=== PATIENT | female | born 1945 | race Caucasian/White ===

== ENCOUNTER 2021-01-03 11:35 | Emergency (ER) | payer MEDICARE, BC ==
[2021-01-03 11:44] VITALS: BP 177/91; PULSE 84
--- NOTE | 2021-01-03 11:58 | EDM.PDOC ---
ED HPI GENERAL MEDICAL PROBLEM - General Chief Complaint: Neuro Symptoms/Deficits Stated Complaint: L SIDE OF BODY NUMB Time Seen by Provider: 01/03/21 11:53 - History of Present Illness INITIAL COMMENTS - FREE TEXT/NARRATIVE: 75-year-old female presents the emergency room with left-sided facial and body numbness and weakness. Patient went to bed about 530 this morning and everything seemed to be okay. She awoke around 10:00 with numbness and weakness and she is unsure if the weakness was related to the numbness or she actually had significant weakness at that time. Also at this time she had some significant dizziness this is resolved. At this point if she looks to the right she gets some double vision. She has noticeable left facial numbness at this time no apparent weakness in her face. She has also had some double vision this is aggravated by turning her head to the right and when they were doing [id number] testing this seemed to aggravate it. Patient denies any chest pain pressure or palpitations. Patient has not had episodes like this in the past. She has a history of diabetes, type II, hyperlipidemia. No prior history of coronary artery disease no prior history of stroke. - Related Data Allergies Allergy/AdvReac Type Severity Reaction Status Date / Time azithromycin Allergy Swelling Verified 01/03/21 11:44 [From Zithromax Z-Samy] dulaglutide [From Trulicity] Allergy Dizziness Verified 01/03/21 11:44 lisinopril Allergy Cough Verified 01/03/21 11:44 morphine Allergy Confusion Verified 01/03/21 11:44 peanut Allergy Anaphylactic Verified 01/03/21 11:44 Shock saxagliptin HCl Allergy Rash Verified 01/03/21 11:44 [From Onglyza] sitagliptin phosphate Allergy Rash Verified 01/03/21 11:44 [From Januvia] Sulfa (Sulfonamide Allergy Rash Verified 01/03/21 11:44 Antibiotics) sulfamethoxazole Allergy Rash Verified 01/03/21 11:44 [From Bactrim] trimethoprim [From Bactrim] Allergy Rash Verified 01/03/21 11:44 Home Meds: Home Meds Glimepiride [Amaryl] 4 mg PO DAILY 04/27/15 [History] LORazepam [Ativan] 1 mg PO Q8H #10 tablet 04/27/15 [Rx] Linagliptin [Tradjenta] 5 mg PO DAILY 04/27/15 [History] Metoprolol Succinate [Toprol XL] 25 mg PO DAILY 04/27/15 [History] atorvaSTATin [Lipitor] 10 mg PO BEDTIME 04/27/15 [History] metFORMIN [Glucophage XR] 2,000 mg PO WITHDINNER 04/27/15 [History] Past Medical History - Infectious Disease History Infectious Disease History: Reports: MRSA Other Infectious Disease History: 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) Social & Family History - Tobacco Use Tobacco Use Status *Q: Never Tobacco User - Caffeine Use Caffeine Use: Reports: Coffee - Recreational Drug Use Recreational Drug Use: No ED ROS GENERAL - Review of Systems Review Of Systems: See Below Constitutional: Reports: No Symptoms HEENT: Reports: No Symptoms Respiratory: Reports: No Symptoms Cardiovascular: Reports: No Symptoms GI/Abdominal: Reports: No Symptoms : Reports: No Symptoms Musculoskeletal: Reports: No Symptoms Skin: Reports: No Symptoms Neurological: Reports: Other (See history of present illness) Psychiatric: Reports: No Symptoms Immunologic: Reports: No Symptoms ED EXAM, NEURO - Physical Exam Exam: See Below Exam Limited By: No Limitations General Appearance: Alert, No Apparent Distress Eye Exam: Bilateral Eye: Normal Inspection, PERRL Ears: Normal External Exam, Normal Canal, Hearing Grossly Normal, Normal TMs Nose: Normal Inspection, Normal Mucosa, No Blood Throat/Mouth: Normal Inspection, Normal Lips, Normal Teeth, Normal Gums, Normal Oropharynx, Normal Voice, No Airway Compromise Head Exam: Atraumatic, Normocephalic Neck: Normal Inspection, Supple, Non-Tender, Full Range of Motion Respiratory/Chest: No Respiratory Distress, Lungs Clear, Normal Breath Sounds Cardiovascular: Regular Rate, Rhythm, No Edema, No Murmur GI/Abdominal: Normal Bowel Sounds, Soft, Non-Tender Neurological: Other (Patient has a left-sided facial numbness no apparent weakness. Muscle testing upper and lower extremities seems to be fairly equal and appropriate at this time it is unclear if she has numbness in his extremities at this time.) Back Exam: Normal Inspection, Full Range of Motion. No: CVA Tenderness (L), CVA Tenderness (R) Extremities: Normal Inspection, Normal Range of Motion, Non-Tender Psychiatric: Normal Affect, Normal Mood Skin Exam: Warm, Dry, Intact Course - Vital Signs Last Recorded V/S: Last Vital Signs Temp 35.8 C L 01/03/21 11:39 Pulse 84 01/03/21 11:39 Resp 17 01/03/21 11:39 BP 177/91 H 01/03/21 11:39 Pulse Ox 100 01/03/21 11:39 - Orders/Labs/Meds Orders: Active Orders 24 hr Category Date Time Status EKG Documentation Completion [RC] STAT Care 01/03/21 11:47 Active Chest 1V Frontal [CR] Stat Exams 01/03/21 11:47 Taken Head wo Cont [CT] Stat Exams 01/03/21 11:48 Taken Labs: Laboratory Tests 01/03/21 01/03/21 01/03/21 Range/Units 11:42 11:42 11:42 WBC 8.07 (3.98-10.04) K/mm3 RBC 4.70 (3.98-5.22) M/mm3 Hgb 13.4 D (11.2-15.7) gm/dl Hct 40.4 (34.1-44.9) % MCV 86.0 (79.4-94.8) fl MCH 28.5 (25.6-32.2) pg MCHC 33.2 (32.2-35.5) g/dl RDW Std Deviation 40.5 (36.4-46.3) fL Plt Count 267 (182-369) K/mm3 MPV 10.3 (9.4-12.3) fl Neut % (Auto) 52.7 (34.0-71.1) % Lymph % (Auto) 38.3 (19.3-51.7) % [place] % (Auto) 6.8 (4.7-12.5) % Eos % (Auto) 1.4 (0.7-5.8) Baso % (Auto) 0.4 (0.1-1.2) % Neut # (Auto) 4.26 (1.56-6.13) K/mm3 Lymph # (Auto) 3.09 (1.18-3.74) K/mm3 [place] # (Auto) 0.55 H (0.24-0.36) K/mm3 Eos # (Auto) 0.11 (0.04-0.36) K/mm3 Baso # (Auto) 0.03 (0.01-0.08) K/mm3 PT 10.4 (9.7-12.0) SECONDS INR 0.97 APTT 24.5 (21.7-31.4) SECONDS Sodium 141 (136-145) mEq/L Potassium 4.0 (3.5-5.1) mEq/L Chloride 102 (98-107) mEq/L Carbon Dioxide 26 (21-32) mEq/L Anion Gap 17.0 H (5-15) BUN 19 H (7-18) mg/dL Creatinine 1.2 H (0.55-1.02) mg/dL Est Cr Clr Drug Dosing TNP Estimated GFR (MDRD) 44 (>60) mL/min BUN/Creatinine Ratio 15.8 (14-18) Glucose 293 H (83-115) mg/dL Calcium 10.2 H (8.5-10.1) mg/dL Total Bilirubin 0.6 (0.2-1.0) mg/dL AST 12 L (15-37) U/L ALT 24 (14-59) U/L Alkaline Phosphatase 76 (46-116) U/L Troponin I < 0.017 (0.00-0.056) ng/mL Total Protein 7.4 (6.4-8.2) g/dl Albumin 3.8 (3.4-5.0) g/dl Globulin 3.6 gm/dL Albumin/Globulin Ratio 1.1 (1-2) - Re-Assessments/Exams Free Text/Narrative Re-Assessment/Exam: 01/03/21 13:[address] shows no acute changes chest x-ray per my interpretation shows no acute changes. I discussed the situation with Dr. Doty, neurologist at [facility] who recommends the patient be sent over for MRI by the hospitalist service. He is concerned about the possibility of a posterior infarct. Patient has a stroke score of 2 at this time. Patient's blood sugars been elevated she is due to take her morning medications now. 01/03/21 13:[address] Skelton hospitalist who accepts the patient. She recommends we start a baby aspirin at this point. Departure - Departure Time of Disposition: 13:14 Disposition: DC/Tfer to Acute Hospital 02 Condition: Fair Clinical Impression: TIA (transient ischemic attack) - Discharge Information Referrals: Rubi Darby [employer] [facility] [Primary Care Provider] - Forms: ED Department Discharge Sepsis Event Note (ED) - Evaluation Sepsis Screening Result: No Definite Risk - Focused Exam Vital Signs: Vital Signs Temp Pulse Resp BP Pulse Ox 01/03/21 11:39 35.8 C L 84 17 177/91 H 100 - My Orders Last 24 Hours: My Active Orders 01/03/21 11:47 EKG Documentation Completion [RC] STAT Chest 1V Frontal [CR] Stat 01/03/21 11:48 Head wo Cont [CT] Stat - Assessment/Plan Last 24 Hours: My Active Orders 01/03/21 11:47 EKG Documentation Completion [RC] STAT Chest 1V Frontal [CR] Stat 01/03/21 11:48 Head wo Cont [CT] Stat
[2021-01-03] MEDS ORDERED: Aspirin 81 MG Tab.EC PO ONE (13:19)
--- NOTE | 2021-01-04 09:04 | CT ---
Head CT Technique: Multiple axial sections through the brain were obtained. Intravenous contrast was not utilized. Reconstructed coronal and sagittal images were obtained. Comparison: No prior intracranial imaging is available. Findings: Ventricles along with basal cisterns and sulci over convexities are slightly prominent. Mild areas of diminished density are noted within the periventricular white matter compatible with small vessel ischemic demyelination change. 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 No other abnormal parenchymal densities are seen. No evidence of intracranial hemorrhage. No midline shift or mass-effect is appreciated. Bone window settings were reviewed. Visualized mastoid sinuses and paranasal sinuses show nothing acute. No acute calvarial finding is appreciated. Impression: 1. Mild senescent change as noted above. 2. Nothing acute is appreciated on noncontrast head CT study. 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
--- NOTE | 2021-01-04 11:38 | CR ---
Chest: Portable view of the chest was obtained. Comparison: Prior chest x-ray of 10/07/20. Heart size and mediastinum are within normal limits. Lungs are clear with no acute parenchymal change. Slight scoliosis is noted within the spine with minimal scattered degenerative change. Impression: 1. Nothing acute is seen on portable chest x-ray. Diagnostic code #2
== END 2021-01-03 14:20 ==
LOC: JD.ED 11:35
DX: G45.9 Transient cerebral ischemic attack, unspecified (principal); E11.9 Type 2 diabetes mellitus without complications; E78.5 Hyperlipidemia, unspecified; Z88.1 Allergy status to other antibiotic agents; Z88.8 Allergy status to other drugs, medicaments and biological substances; Z88.5 Allergy status to narcotic agent; Z91.010 Allergy to peanuts; Z88.2 Allergy status to sulfonamides; Z79.84 Long term (current) use of oral hypoglycemic drugs; Z79.899 Other long term (current) drug therapy; Z20.828 Contact with and (suspected) exposure to other viral communicable diseases
CPT/HCPCS: 36415; 70450; 71045; 80053; 82962; 84484; 85025; 85610; 85730; 93005; 99285; A9270; U0002

== ENCOUNTER 2022-09-20 16:25 | Day surgery (SDC) | payer MEDICARE, BC ==
[~2022-09-20 16:25] MED LIST: Lactated Ringers 1,000 ML IV SCH; Lidocaine 1%/Sod Bicarbonate in NS 8.4% 1 ML Syringe IDERM PRN
[2022-09-20] MEDS ORDERED: Lidocaine 1% with EPINEPHrine 1:100,000 20 ML MDV ONE (16:51)
[2022-09-20] MEDS ORDERED: Lidocaine 1% 5 ML VIAL ONE (17:13)
[2022-09-20] MEDS ORDERED: Propofol 200 MG/20 ML SDV ONE ×2 (17:13→17:21)
[2022-09-20] MEDS ORDERED: ceFAZolin 2 GM Vial ONE (17:14)
[2022-09-20] MEDS ORDERED: metroNIDAZOLE/Normal Saline 500 MG in Premix Bag 1 BAG IV ONE (17:30)
[2022-09-20 20:20] VITALS: BP 114/54; PULSE 81
[2022-09-20] MEDS ORDERED: Sodium Chloride 0.9% 10 ML Syringe FLUSH SCH (21:00)
== END 2022-09-20 18:57 | disposition home or self-care (01) ==
LOC: JD.SDS 16:25
PROVIDERS: ATTEND Surgery
DX: L02.31 Cutaneous abscess of buttock (principal); E11.9 Type 2 diabetes mellitus without complications; I10 Essential (primary) hypertension; K21.9 Gastro-esophageal reflux disease without esophagitis; I47.20 Ventricular tachycardia, unspecified; E78.00 Pure hypercholesterolemia, unspecified; E66.9 Obesity, unspecified; Z68.28 Body mass index [BMI] 28.0-28.9, adult; Z90.49 Acquired absence of other specified parts of digestive tract; Z98.890 Other specified postprocedural states; Z79.84 Long term (current) use of oral hypoglycemic drugs; Z79.899 Other long term (current) drug therapy; Z88.2 Allergy status to sulfonamides; Z88.8 Allergy status to other drugs, medicaments and biological substances; Z88.1 Allergy status to other antibiotic agents; Z88.6 Allergy status to analgesic agent; Z79.4 Long term (current) use of insulin
CPT/HCPCS: 10061; 87070; 87075; 87205; J0690; J2704; J3490; J7120; 00300

== ENCOUNTER 2024-11-01 14:28 | Emergency (ER) | payer MEDICARE, BC ==
[2024-11-01 15:31] LABS: APPEARANCE,URINE SLT CLOUDY (Clear); BILIRUBIN,URINE NEGATIVE (Negative); COLOR,URINE YELLOW (Yellow); GLUCOSE,URINE 2+ (Negative); KETONES,URINE NEGATIVE (Negative); LEUKOCYTE ESTERASE,URINE NEGATIVE (Negative); NITRITE,URINE NEGATIVE (Negative); OCCULT BLOOD,URINE NEGATIVE (Negative); PH,URINE 5.5 (5.0-8.0); PROTEIN,URINE 1+ (Negative); UROBILINOGEN,URINE 0.2 (0.2-1.0)
[2024-11-01 16:14] LABS: BASOPHILS PERCENT AUTO 0.5 % (0.0-1.0); EOSINOPHILS ABSOLUTE AUTO 0.1 K/mm3 (0.0-0.4); EOSINOPHILS PERCENT AUTO 1.8 % (0.0-6.0); HEMATOCRIT 34.8 % (37.0-47.0); HEMOGLOBIN 12.2 gm/dl (12.0-16.0); IMMATURE GRAN ABSOLUTE AUTO 0.05 K/mm3 (0.00-0.05); IMMATURE GRAN PERCENT AUTO 0.8 % (0.0-0.4); LYMPHOCYTES ABSOLUTE AUTO 2.2 K/mm3 (1.0-4.8); LYMPHOCYTES PERCENT AUTO 33.4 % (24.0-44.0); MEAN CORPUSCULAR HEMOGLOBIN 29.5 pg (28.0-32.0); MEAN CORPUSCULAR HGB CONC 35.1 g/dl (32.0-36.0); MEAN CORPUSCULAR VOLUME 84.3 fl (83.0-99.0); MEAN PLATELET VOLUME 9.7 fl (9.4-12.3); MONOCYTES ABSOLUTE AUTO 0.4 K/mm3 (0.0-0.8); MONOCYTES PERCENT AUTO 5.6 % (0.0-8.0); NEUTROPHILS ABSOLUTE AUTO 3.8 K/mm3 (1.8-7.7); NEUTROPHILS PERCENT AUTO 57.9 % (41.0-71.0); PLATELET COUNT,PLT 222 K/mm3 (150-400); RED BLOOD CELL COUNT 4.13 M/mm3 (4.10-5.30); WHITE BLOOD CELL COUNT,WBC 6.56 K/mm3 (3.9-11.3)
[2024-11-01 16:39] LABS: A/G RATIO 1.1 (1-2); ALBUMIN 3.4 g/dl (3.4-5.0); ANION GAP 15.9 (5-15); BILIRUBIN TOTAL 0.6 mg/dL (0.2-1.0); BUN/CREATININE RATIO 14.6 (14-18); CALCIUM 9.7 mg/dL (8.5-10.1); CREATININE 1.3 mg/dL (0.55-1.02); EST CRCL DRUG DOSING (CG) 34.68 mL/min; POTASSIUM,K 3.9 mEq/L (3.5-5.1); PROTEIN TOTAL,TP 6.6 g/dl (6.4-8.2)
[2024-11-01 16:44] LABS: BACTERIA,URINE MANY /hpf (FEW); MUCUS,URINE FEW /hpf (FEW); RBC,URINE 0-5 /hpf (0-5); WBC,URINE 0-5 /hpf (0-5)
[2024-11-01 17:40] VITALS: BP 155/94; PULSE 80
== END 2024-11-01 17:30 | disposition home or self-care (01) ==
LOC: JD.ED 14:28
DX: M54.50 Low back pain, unspecified (principal); E78.00 Pure hypercholesterolemia, unspecified; E11.9 Type 2 diabetes mellitus without complications; E66.9 Obesity, unspecified; Z86.73 Personal history of transient ischemic attack (TIA), and cerebral infarction without residual deficits; Z88.1 Allergy status to other antibiotic agents; Z88.5 Allergy status to narcotic agent; Z88.2 Allergy status to sulfonamides; Z88.8 Allergy status to other drugs, medicaments and biological substances; Z91.010 Allergy to peanuts; Z79.84 Long term (current) use of oral hypoglycemic drugs; Z79.899 Other long term (current) drug therapy; Z68.29 Body mass index [BMI] 29.0-29.9, adult
CPT/HCPCS: 36415; 74176; 74176-26; 80053; 81001; 83690; 85025; 99284